=== PATIENT | female | born 1960 | race Caucasian/White ===

== ENCOUNTER 2021-06-15 12:07 | Outpatient (CLI) | payer OTHER | END 2021-06-15 12:25 | disposition home or self-care (01) | LOC: SONOGRAMA 12:07 | PROVIDERS: ATTEND Specialist | DX: M05.79 Rheumatoid arthritis with rheumatoid factor of multiple sites without organ or systems involvement (principal) ==

== ENCOUNTER 2022-10-12 07:39 | Outpatient (CLI) | payer OTHER | END 2022-10-12 07:47 | disposition home or self-care (01) | LOC: TOM 07:39 | PROVIDERS: ATTEND Otolaryngology Plastic Surgery within the Head & Neck | DX: J47.9 Bronchiectasis, uncomplicated (principal) ==

== ENCOUNTER 2022-10-25 08:48 | Outpatient (CLI) | payer OTHER | END 2022-10-25 08:56 | disposition home or self-care (01) | LOC: RX STUDY 08:48 | PROVIDERS: ATTEND Otolaryngology Plastic Surgery within the Head & Neck | DX: R13.19 Other dysphagia (principal); R09.89 Other specified symptoms and signs involving the circulatory and respiratory systems ==

== ENCOUNTER 2025-03-04 09:16 | Outpatient (CLI) | payer OTHER | END 2025-03-04 09:23 | disposition home or self-care (01) | LOC: SONOGRAMA 09:16 | PROVIDERS: ATTEND Specialist | DX: M05.79 Rheumatoid arthritis with rheumatoid factor of multiple sites without organ or systems involvement (principal); M19.071 Primary osteoarthritis, right ankle and foot; M19.072 Primary osteoarthritis, left ankle and foot ==